=== PATIENT | female | born 1975 | race Hispanic/Latino ===

== ENCOUNTER → 2020-10-18 | Outpatient (CLI) | payer BC | LOC: MAMMO 10:26 | PROVIDERS: ATTEND Internal Medicine | DX: Z12.31 Encounter for screening mammogram for malignant neoplasm of breast (principal) | CPT/HCPCS: 77067 ==

== ENCOUNTER → 2021-01-17 | Outpatient (CLI) | payer BC ==
[~2021-01-17] MED LIST: IOPAMIDOL 370 MG/ML 200 ML INFUS..BTL INJ ONE; SODIUM CHLORIDE 0.9% 250ML 250 ML ONE
== END ==
LOC: CT 14:18
PROVIDERS: ATTEND Urology
DX: R31.21 Asymptomatic microscopic hematuria (principal); Z87.442 Personal history of urinary calculi
CPT/HCPCS: 74178; J7050; Q9967